=== PATIENT | female | born 1965 | race Two or more races ===

== ENCOUNTER 2024-02-28 10:27 | Inpatient (IN) | payer MEDICARE, OTHER ==
[~2024-02-28] VITALS: Ht 165.1 cm; Wt 84.0 kg
[2024-02-28] MEDS: SODIUM CHLORIDE 0.9% 1,000 ML IV ONE (11:00)
[2024-02-28 11:53] LABS: Chloride 101 mmol/L (98-107); Potassium 3.7 mmol/L (3.5-5.1); Sodium 138 mmol/L (136-145)
[2024-02-28 11:54] LABS: Anion Gap 2 (5-15); Calcium 9.3 mg/dL (8.5-10.1); Carbon Dioxide 35 mmol/L (20-30)
[2024-02-28 11:55] VITALS: PULSE 88; RESP 19; O2SAT 95
[2024-02-28 11:56] LABS: Hemoglobin 9.2 g/dL (12.2-16.2); Mean Corpuscular Hemoglobin 27.3 pg (28.0-32.0); Mean Corpuscular Hgb Conc. 32.8 g/dL (32.0-36.0); Mean Corpuscular Volume 83.3 fL (80.0-100.0); Red Blood Cells 3.37 10^6/uL (4.0-5.20); Red Cell Distribution Width 15.9 % (11.8-14.3); White Blood Cell 8.2 10^3/uL (4.4-10.8)
[2024-02-28 11:57] LABS: Basophils % (manual) 0 (0.0-2.0); Blast Cells 0; Metamyelocytes % 0; Myelocytes % 0; Promyelocytes % 0; Reactive Lymphocytes 0
[2024-02-28 11:59] LABS: BUN/Creatinine Ratio 29.7 (10.0-20.0); Blood Urea Nitrogen 19 mg/dL (9-23); Glucose 109 mg/dL (74-106)
[2024-02-28 12:15] LABS: Band Neutrophils % (manual) 4; Eosinophils % (manual) 2 (0-7); Lymphocytes % (manual) 8 (10.0-50.0); Monocytes % (manual) 2 (0-12)
[2024-02-28 12:16] LABS: Platelet Estimate Adequate
[2024-02-28 12:25] LABS: Urine Bacteria None Seen /hpf (None Seen)
[2024-02-28 12:49] LABS: Urine Blood 3+ /uL (Negative); Urine Clarity Ex.Turbid (Clear); Urine Color Brown (Yellow); Urine Protein, UAD 2+ (Negative); Urine Specific Gravity 1.016 (1.001-1.035); Urine Urobilinogen 2 mg/dL (Negative); Urine WBC 1376 /hpf (0 - 5); Urine WBC Clumps PRESENT /hpf (None Seen); Urine pH 8.5 (5.0-9.0)
[2024-02-28] MEDS: cefTRIAXone 1GM/50ML D5W 50 ML IV ONE (13:35)
[2024-02-28] MEDS ORDERED: POLYETHYLENE GLYCOL 17 GM PWDR PO PRN (15:30)
[2024-02-28] MEDS ORDERED: DOCUSATE SOD 100 MG CAP PO PRN (15:30)
[2024-02-28] MEDS: POLYETHYLENE GLYCOL 17 GM PWDR PO ONE (15:30)
[2024-02-28] MEDS ORDERED: ONDANSETRON HCL 4 MG/2 ML VIAL IV PRN (15:30)
[2024-02-28] MEDS ORDERED: NITROGLYCERIN 0.4 MG SL TAB SL PRN (17:15)
[2024-02-28] MEDS ORDERED: MORPHINE SULFATE INJ 2 MG/ml SYRG IV PRN (17:15)
[2024-02-28] MEDS: NAPROXEN 500 MG TAB PO ONE (17:27)
[2024-02-28] MEDS: HYDROcodone-ACET 5/325MG TAB PO ONE (17:27)
[2024-02-28] MEDS: SODIUM CHLORIDE 0.9% 1,000 ML IV SCH (17:39)
[2024-02-28 21:00] VITALS: BP 126/69; PULSE 90; RESP 18; TEMP 99.7; O2SAT 98
[2024-02-28 21:02] VITALS: PULSE 90; RESP 18; O2SAT 97
[2024-02-28] MEDS: NAPROXEN 500 MG TAB PO SCH (21:32)
[2024-02-28] MEDS: HYDROcodone-ACET 5/325MG TAB PO PRN (23:38)
[2024-02-29] VITALS (7 sets, daily range): BP systolic 125–151; BP diastolic 65–103; PULSE 82–100; RESP 16–20; TEMP 97.6–98.9; O2SAT 93–97
[2024-02-29 06:08] LABS: Hemoglobin 8.3 g/dL (12.2-16.2); Mean Corpuscular Volume 83.6 fL (80.0-100.0); Red Cell Distribution Width 16.4 % (11.8-14.3)
[2024-02-29 06:12] LABS: Mean Corpuscular Hemoglobin 27.7 pg (28.0-32.0); Mean Corpuscular Hgb Conc. 33.1 g/dL (32.0-36.0); White Blood Cell 5.8 10^3/uL (4.4-10.8)
[2024-02-29 06:21] LABS: Alanine Aminotransferase 168 U/L (7-40); Albumin 3.3 g/dL (3.2-4.8); Alkaline Phosphatase 158 U/L (46-116); Anion Gap 9 (5-15); Aspartate Aminotransferase 103 U/L (13-40); BUN/Creatinine Ratio 26.9 (10.0-20.0); Bilirubin, Total 1.3 mg/dL (0.2-1.0); Blood Urea Nitrogen 18 mg/dL (9-23); Calcium 9.3 mg/dL (8.7-10.4); Carbon Dioxide 28 mmol/L (20-30); Chloride 105 mmol/L (98-107); Glucose 105 mg/dL (74-106); Potassium 4.1 mmol/L (3.5-5.1); Sodium 142 mmol/L (136-145); Total Protein 5.7 g/dL (5.7-8.2)
[2024-02-29 06:36] LABS: Basophils % (manual) 0 (0.0-2.0); Blast Cells 0; Eosinophils % (manual) 0 (0-7); Metamyelocytes % 0; Myelocytes % 0; Promyelocytes % 0; Reactive Lymphocytes 0
[2024-02-29 08:18] LABS: Band Neutrophils % (manual) 1; Lymphocytes % (manual) 25 (10.0-50.0); Monocytes % (manual) 9 (0-12)
[2024-02-29 08:19] LABS: Platelet Estimate Adequate; RBC Morphology Normal
[2024-02-29 08:31] LABS: Hepatitis B Surface Antigen Negative (Negative)
[2024-02-29 08:53] LABS: Hepatitis C Antibody Negative (Negative)
[2024-02-29] MEDS: cefTRIAXone 1GM/50ML D5W 50 ML IV SCH (09:24)
[2024-02-29] MEDS ORDERED: CHOL20007 PO (18:36)
[2024-02-29] MEDS ORDERED: CALC667C PO (18:37)
[2024-03-01 08:00] VITALS: PULSE 94; RESP 17; O2SAT 96
[2024-03-01 09:00] VITALS: BP 145/88; PULSE 94; RESP 17; TEMP 97.5; O2SAT 96
[2024-03-01 13:00] VITALS: BP 139/93; PULSE 92; RESP 16; TEMP 98.4; O2SAT 94
[2024-03-01 17:00] VITALS: BP 101/65; PULSE 88; RESP 16; TEMP 98.9; O2SAT 92
[2024-03-01] MEDS: MORPHINE SULFATE INJ 2 MG/ml SYRG IV PRN (17:32)
[2024-03-01 20:00] VITALS: PULSE 87; RESP 16; O2SAT 99
[2024-03-01 21:00] VITALS: BP 143/87; PULSE 87; RESP 16; TEMP 98.1; O2SAT 99
[2024-03-02] VITALS (7 sets, daily range): BP systolic 124–150; BP diastolic 63–89; PULSE 76–89; RESP 16–18; TEMP 98.2–98.8; O2SAT 92–95
[2024-03-03] VITALS (8 sets, daily range): BP systolic 136–152; BP diastolic 59–74; PULSE 82–99; RESP 16–19; TEMP 97.6–98.8; O2SAT 92–96
[2024-03-04] VITALS (7 sets, daily range): BP systolic 132–145; BP diastolic 61–71; PULSE 84–106; RESP 17–18; TEMP 37; O2SAT 92–96
== END 2024-03-04 19:15 | DRG 698 ==
LOC: EDBD 10:27 → ER 10:27 → OVERFLOW 17:12 → WEST WING 20:03
PROVIDERS: ADMIT Nurse Practitioner Family; ATTEND Family Medicine
PROC: 05HF33Z Insertion of Infusion Device into Left Cephalic Vein, Percutaneous Approach (ICD-10-PCS; principal; 2024-03-02)
PROC: B54NZZA Ultrasonography of Left Upper Extremity Veins, Guidance (ICD-10-PCS; 2024-03-02)
DX: T83.511A Infection and inflammatory reaction due to indwelling urethral catheter, initial encounter (principal); A41.51 Sepsis due to Escherichia coli [E. coli]; D62 Acute posthemorrhagic anemia; N30.01 Acute cystitis with hematuria; K59.00 Constipation, unspecified; D25.9 Leiomyoma of uterus, unspecified; Z79.01 Long term (current) use of anticoagulants; Z81.8 Family history of other mental and behavioral disorders; B96.20 Unspecified Escherichia coli [E. coli] as the cause of diseases classified elsewhere
CPT/HCPCS: 36415; 74176; 80048; 80053; 81001; 85007; 85027; 86803; 87040; 87081; 87086; 87088; 87186; 87340; 96361; 96365; 97110; 97116; 97163; 97530; G0378